=== PATIENT | female | born 1995 | race Caucasian/White ===

== ENCOUNTER 2017-05-26 03:02 | Emergency (ER) | payer OTHER ==
[2017-05-26] MEDS ORDERED: ONDANSETRON DISINTEGRATING 4 MG TAB ONE (03:15)
[2017-05-26] MEDS ORDERED: ONDANSETRON DISINTEGRATING 4 MG TAB PO ONE (03:17)
--- NOTE | 2017-05-26 03:45 | EDPHY ---
H & P Stated Complaint: ETOH Time Seen by Provider: 05/26/17 03:43 HPI/ROS: Chief Complaint: Alcohol intoxication, vomiting HPI: 22-year-old female who [place] Patient has been drinking alcohol and eating marijuana at a bowls. Patient passed out after vomiting. Is unable to ambulate on their own. Patient brought in by EMS for further evaluation. No obvious signs of trauma per EMS. Remainder of history is unobtainable secondary to the patient's intoxication. ROS: Unobtainable secondary to the patient's intoxication PMH: Unknown Medications: Unknown Allergies: Unknown Social History: Positive for alcohol Family History: non-contributory Physical Exam: Gen: Somnolent, responds to painful stimuli, maintaining airway, smells of alcohol and emesis HEENT: Atraumatic Nose: no epistaxis or deformity Eyes: PERRLA, EOMI Mouth: Moist mucosa Neck: Supple, no step-offs or deformity Chest: Atraumatic, lungs clear to auscultation Heart: S1, S2 normal, no murmur Abd: Soft, non-tender, no guarding Back: Atraumatic Ext: no edema, atraumatic Skin: no rash Neuro: Sensation grossly intact, Strength 5/5 in bilateral upper and lower extremities - Personal History LMP (Females 10-55): Unknown Current Tetanus Diphtheria and Acellular Pertussis (TDAP): Yes - Medical/Surgical History Hx Asthma: No Hx Chronic Respiratory Disease: No Hx Diabetes: No Hx Cardiac Disease: No Hx Renal Disease: No Hx Cirrhosis: No Hx Alcoholism: No Hx HIV/AIDS: No Hx Splenectomy or Spleen Trauma: No - Social History Smoking Status: Never smoked Constitutional: Initial Vital Signs Temperature (C) 36.6 C 05/26/17 03:00 Heart Rate 85 05/26/17 03:00 Respiratory Rate 20 05/26/17 03:00 Blood Pressure 96/65 L 05/26/17 03:00 O2 Sat (%) 95 05/26/17 03:00 O2 Delivery Mode Nasal Cannula O2 (L/minute) 2 Medical Decision Making ED Course/Re-evaluation: Patient is now awake and appropriate. Ambulating unassisted to the bathroom. No current complaints. She is tolerating p. O.. She has a sober friend at the bedside. Patient is ready for discharge. - Data Points Medications Given: Discontinued Medications Ondansetron HCl (Zofran Odt) 4 mg PO EDNOW ONE Stop: 05/26/17 03:18 Last Admin: 05/26/17 03:18 Dose: 4 mg Departure - Departure Disposition: Home, Routine, Self-Care Clinical Impression: Alcoholic intoxication Condition: Good Instructions: Alcohol Intoxication (ED) Referrals: Patient,NotPresent [Unknown] - As per Instructions
[2017-05-26 05:30] VITALS: BP 105/69; PULSE 81; RESP 18; TEMP 98.1; O2SAT 99
== END 2017-05-26 05:31 | disposition home or self-care (01) ==
DX: F10.129 Alcohol abuse with intoxication, unspecified (principal)